=== PATIENT | male | born 2000 | race African-American/Black ===

== ENCOUNTER 2024-12-06 10:15 | Outpatient (REF) | payer MEDICAID, SELFPAY ==
[2024-12-06 11:29] LABS: Hematocrit 44.4 % (42.0-52.0); Hemoglobin 15.1 g/dl (14.0-18.0); Mean Corpuscular Hemoglobin 26.7 pg (27.0-33.0); Mean Corpuscular Volume 78.6 fL (80.0-98.0); Platelet Count 174 X10*3/uL (160-400); Red Blood Count 5.65 X10*6/uL (4.60-5.80); Red Cell Distribution Width 13.3 % (11.0-16.0); White Blood Count 7.3 X10*3/uL (4.8-10.8)
[2024-12-06 11:36] LABS: Estimated Average Glucose 103 mg/dL; Hemoglobin A1C 129.6406 umol/L; Hemoglobin A1c % 5.2 % (<6.0)
--- OUTSIDE RECORDS SUMMARY | 2024-12-06 11:36 | XMS_ITS | Clinical Summary ---
Author Organization [employer] [facility] Address [address] [facility] 7t [place] [address] Care Team Providers Care Card Cutter Helper Name Role Phone Corazon Lee DO Primary Care Provider Allergies Active Allergy Reactions Criticality Noted Date Comments Shellfish Allergy 07/22/2023 Medications No known medications Active Problems No known active problems Encounters Date Type Department Care Team Description 12/06/2024 9:00 AM EDT Office Visit [facility] [address] [place] [phone] Corazon Lee DO Routine history and physical examination of adult (Primary Dx); BMI 21.0-21.9, adult; Heart murmur; Decreased visual acuity 12/06/[address] [address] Corazon Lee DO telephone call 12/06/2024 Travel 12/05/[address] [address] Corazon Lee DO Chart Prep 11/28/2024 Patient Outreach [address] [address] Corazon Lee DO Pre-visit Planning (SDOH screening negative and tobacco screening negative) 09/08/2024 Population Health Risk Score [facility] (C[facility]) Department [address] [phone] Provider, Population Health Generic from Last 3 Months Immunizations Immunization Administration Dates Next Due INFLUENZA INJECTABLE QUADRIV ALANT CCIIV4 MDCK Multi-dose vial 06/08/2023 Influenza, Injectable, MDCK, preservative free 1 Family History Medical History Relation Name Comments No Known Problems Father Breast cancer Father's Sister No Known Problems Mother Cancer Paternal Cousin Relation Name Status Comments Father Father's Sister Mother Paternal Cousin Social History Tobacco Use Types Packs/Day Years Used Date Smoking Tobacco: Never Smokeless Tobacco: Never Tobacco Cessation:Counseling Given: Not Answered Depression Answer Date Recorded Patient Health Questionnaire-9 Score 0 12/06/2024 Patient Health Questionnaire-9 Score 0 12/06/2024 Last PHQ-9: Questionnaire Data Not on file 0 12/06/2024 Housing Stability Answer Date Recorded What is your housing situation today? I have karine feng 11/28/[address] you li ve. Do you have problems with any of the following? None of the above 11/28/2024 Food Insecurity Answer Date Recorded Within the past 12 months, y ou worried that your food would run out before you got money to buy more: Never True 11/28/2024 Within the past 12 months,th e food you bought just didn't last and you didn't have enough money to get more: Never True 08/2024 Transportation Answer Date Recorded In the past 12 months, has l ack of transportation kept you from medical appts, meetings, work or from getting things needed for daily living? No 11/28/2024 Utilities Answer Date Recorded In the past 12 months, has t he electric, gas, oil or water company threatened to shut off services in your home? No 11/28/2024 Depression Answer Date Recorded Patient Health Questionnaire-2 Score 0 12/06/2024 Internet Access Answer Date Recorded Internet Access Q1 Yes 11/28/2024 Internet Access Q2 Not on file 11/28/2024 Sex and Gender Information Value Date Recorded Sex Assigned at Male 06/08/2023 9:27 AM EST Legal Sex Male 9:24 AM EST Gender Identity Male 06/08/2023 9:27 AM EST Sexual Orientation Straight 08/09/2023 10 :02 AM EST Last Filed Vital Signs Vital Sign Reading Time Taken Comments Blood Pressure 128/80 12/06/2024 8:49 AM EDT Pulse 94 12/06/2024 8:49 AM EDT Temperature 36.8 ??C (98.2 ??F) 12/06/2024 8:49 AM ED T Respiratory Rate 18 12/06/2024 8:49 AM EDT Oxygen Saturation - - Inhaled Oxygen Concentration - - Weight 69.9 kg (154 lb) 12/06/2024 8:49 AM EDT Height 180.3 cm (5' 11 ) 12/06/2024 8:49 AM EDT Body Mass Index 21.48 12/06/2024 8:49 AM EDT Plan of Treatment Health Maintenance Due Date Last Done Comments HIV Screening 2000 Family Planning (PISQ) 01/13/2015 HPV Vaccines (1 - Male 3-dos e series) 01/13/2015 Hepatitis C Screening 01/13/2018 DTaP/Tdap/Td Vaccines (1 - Tdap) 01/13/2019 Hepatitis B Vaccines (1 of 3 - 19+ 3-dose series) 01/13/2019 COVID-19 Vaccine ( - 2023-2 5 season) 2024 Dental Oral Exam 07/03/2024 12/31/2023, 07/01/2023 Dental Prophylaxis 07/03/2024 12/31/2023, 07/01/2023 Dental X-Ray: Bitewings 04/14/2025 04/13/20 24, 07/01/2023 SDOH Screening 11/28/2025 11/28/2024 Alcohol/Substance Use Screening 12/06/2025 12/06/2024 Depression Screening 12/06/2025 12/06/2024, 12/06/2024 Disability Screening 12/06/2025 12/06/2024 Tobacco Screening 12/06/2025 12/06/2024 Dental X-Ray: Full Mouth 07/02/2026 024, 06/09/2023 Zoster Vaccines (1 of 2) 01/13/2050 RSV Patients and Patients Aged 60 years or older (1 - 1-dose 75+ series) 01/13/2075 Influenza Vaccine Completed 04/12/2024, 06/08/2023 HIB Vaccines Aged Out No longer eligi ble based on patient's age to complete this topic Hepatitis A Vaccines Aged Out No long er eligible based on patient's age to complete this topic IPV Vaccines Aged Out No longer eligi ble based on patient's age to complete this topic Meningococcal B Vaccine Aged Out No l onger eligible based on patient's age to complete this topic Meningococcal Vaccine Aged Out No alondra jazz eligible based on patient's age to complete this topic Pneumococcal Vaccine: Pediatrics (0 to 5 Years) and At-Risk Patients (6 to 49) Years) Aged Out No longer eligible b ased on patient's age to complete this topic RSV under 20 months Aged Out No longe r eligible based on patient's age to complete this topic Rotavirus Vaccines Aged Out No longer eligible based on patient's age to complete this topic Procedures Procedure Name Priority Date/Time Associated Diagnosis Comments CBC Routine 12/06/2024 10:20 AM EDT Routine history and physical examination of adult BMI 21.0-21.9, adult BITEWING - SINGLE RADIOGRAPHIC IMAGE Routine 04/13/2024 10:00 AM EDT Full PROPHYLAXIS - ADULT Routine 12/31/2023 8:00 AM EDT PERIODIC ORAL EVALUATION - ESTABLISHED PATIENT Routine 12/31/2023 8:00 AM EDT INTRAORAL - COMPLETE SERIES OF RADIOGRAPHIC IMAGES Routine 07/01/2023 8:00 AM EST from Last 3 Months or Most Recently Relevant to Health Maintenance Results * (ABNORMAL) CBC (12/06/2024 10:20 AM EDT) White Blood Count 7.3 4.8 - 10.8 X10*3/uL [facility] Red Blood Count 5.65 4.60 - 5.80 X10*6/uL [facility] Hemoglobin 15.1 14.0 - 18.0 g/dl [facility] Hematocrit 44.4 42.0 - 52.0 % [facility] Mean Corpuscular Volume 78.6(L) 80.0 - 98.0 fL [facility] Mean Corpuscular Hemoglobin 26.7(L) 27.0 - 33.0 pg [facility] Mean Corpuscular HGB Conc 34.0 31.0 - 36.0 g/dl [facility] Red Cell Distribution Width 13.3 11.0 - 16.0 % [facility] Platelet Count 174 160 - 400 X10*3/uL [facility] Mean Platelet Volume 11.0 9.4 - 12.4 fL [facility] NRBC Pct Auto 0.0 0.0 - 0.2 /100WBC [facility] NRBC Abs Auto 0.000 0.0 - 0.012 X10*3/uL [facility] Blood Venous blood specimen / Unknown 12/06/2024 10:20 AM EDT 12/06/2024 11:17 AM EDT us Corazon Lee DO LAB BLOOD ORDERABLES Final R esult [facility] [address] [place] [phone] [phone] from Last [address] [place] [address] [address] [facility]AL-[facility] MEDICAID STAND ADULT Care Teams Card Cutter Helper Relationship Specialty Start Date End Date Corazon Lee DO [address] [place] [phone] PCP - General Family Medicine 12/06/24
[2024-12-06 12:09] LABS: Alanine Aminotransferase 32 U/L (0-40); Albumin Level 4.9 g/dL (3.5-5.0); Alkaline Phosphatase 60 U/L (39-117); Anion Gap 10 (12-20); Aspartate Amino Transferase 32 U/L (5-37); Bilirubin Direct 0.1 mg/dL (0.0-0.5); Bilirubin Total 0.3 mg/dL (0.0-1.0); Blood Urea Nitrogen 12 mg/dL (9-16); Calcium 9.7 mg/dL (8.4-10.2); Carbon Dioxide 29 mmol/L (22-29); Chloride 104 mmol/L (96-108); Cholesterol 157 mg/dL (<200); Estimated Glomerular Filt Rate > 60; Glucose Random 96 mg/dL (60-115); HDL Cholesterol 56 mg/dL (>40); LDL Cholesterol Calculated 67 mg/dL (<100); Potassium 4.2 mmol/L (3.3-5.1); Sodium 139 mmol/L (135-145); Total Protein 7.5 g/dL (6.5-8.0); Triglycerides 172 mg/dL (<150)
[2024-12-06 12:17] LABS: Free T4 (Free Thyroxine) 0.84 ng/dL (0.71-1.85); Thyroid Stimulating Hormone 1.33 uIU/mL (0.32-4.0); Vitamin D 25-OH Total 25.9 ng/mL (>30)
[2024-12-06 12:32] LABS: HBc Num1 0.07 S/CO (0.00-0.79); HBsAGNum1 0.46 S/CO (0.00-0.99); HIV AB/AG Nonreactive (Nonreactive); HIV Num 1 0.06 S/CO (0.00-0.99); Hepatitis B Core Antibody Nonreactive (Nonreactive); Hepatitis B Surface Antigen Negative (Negative); ~HepC Num1 0.15 S/CO (0.00-0.79); ~Hepatitis C Antibody Nonreactive (Nonreactive)
[2024-12-06 13:43] LABS: CT PCR NOT DETECTED (Not Detect.); NG PCR NOT DETECTED (Not Detect.)
[2024-12-07 05:28] LABS: Rubella IgG Antibody 1.74 Index; Rubeola IgG (Measles) <13.50 AU/mL
[2024-12-07 05:39] LABS: Varicella IgG Antibody 8.95 S/CO
[2024-12-07 08:20] LABS: HBS Num2 8.16 mIU/mL (0-7.99); ~Hepatitis B Surface Antibody GRAYZONE (Nonreactive)
[2024-12-07 11:53] LABS: RPR Rapid Plasma Reagin NON-REACTIVE (NON-REACTIVE)
[2024-12-08 08:18] LABS: Hepatitis A Antibody IgG REACTIVE (Nonreactive); ~Hepatitis A Antibody IgG 7.72 S/CO (0.00-0.99)
[2024-12-09 02:38] LABS: TS Negative Control Passed; TS Panel A 0; TS Panel B 0; TS Positive Control Passed; TSpotTB Negative (Negative)
== END 2024-12-06 10:16 | disposition home or self-care (01) ==
LOC: HO.HHCL 10:15
PROVIDERS: Visit Provider Family Medicine
DX: Z00.00 Encounter for general adult medical examination without abnormal findings (principal); Z68.21 Body mass index [BMI] 21.0-21.9, adult
CPT/HCPCS: 80048; 80061; 80076; 82306; 83036; 84439; 84443; 85027; 86481; 86592; 86704; 86706; 86708; 86735; 86762; 86765; 86787; 86803; 87340; 87389; 87491; 87591

== ENCOUNTER → 2025-03-26 11:00 | Outpatient (REF) | payer MEDICAID, SELFPAY ==
--- NOTE | 2025-03-26 11:06 | CA_ITS ---
Transthoracic Echocardiogram Patient (Last, First, Middle): Rod Scherer B. Gender: M Date of : 2000 Age: 25 Procedure Date: 03/26/2025 Procedure Type: Transthoracic Echocardiogram Location: OP Height: 180.34 cm Weight: 72.58 kg BSA: 1.92 m2 Heart Rate: 51 bpm BP: 118 / 68 mmHg Cut Out Worker: SB Referring MD: Corazon Lee DO Symptoms: R01.1 MURMUR Study Quality: Adequate ECG Rhythm: Bradycardia Conclusions: - The left ventricular systolic function is normal. The calculated ejection fraction is 59% by biplane method. - No obvious valvular pathology seen on this study. Findings Left Ventricle Normal left ventricular cavity size. There is normal left ventricular wall thickness. The left ventricular systolic function is normal. The calculated ejection fraction is 59% by biplane method. There is no evidence of regional wall motion abnormalities. Diastolic function is normal for age. Right Ventricle The right ventricle was not well visualized. There is normal right ventricular systolic function. Atria Both atria are normal in size. Aortic Valve There is a normal trileaflet aortic valve. There is no aortic valve stenosis. There is no aortic valve regurgitation. Mitral Valve The mitral valve appears normal. There is trace mitral valve regurgitation. There is no mitral valve stenosis. Pulmonic Valve There is trace pulmonic valve regurgitation. Tricuspid Valve Normal tricuspid valve structure. There is mild tricuspid valve regurgitation. There is no evidence of pulmonary hypertension. Great Vessels The asc aorta is normal in size. Venous The inferior vena cava is normal in size and collapses greater than 50% with inspiration. Pericardium/Pleural There is no evidence of pericardial effusion. Prior Study Comparison No prior study available for comparison. Recommendations, Care & Conclusions No obvious valvular pathology seen on this study. Measurements 2D Linear Measurements IVSd: 1.02 0.6-0.9/0.6-1.0 cm LVIDd: 5.19 3.9-5.3/4.2-5.9 cm LVIDd Index: 2.70 2.4-3.2/2.2-3.1 cm/m2 LVIDs: 3.19 2.0-3.6 cm LVPWd: 0.71 0.7-1.1 cm LA Diam: 3.40 2.7-3.8/3.0-4.0 cm LAIDs Index: 1.77 1.5-2.3 cm/m2 LV Mass: 199.84 67-162/88-224 g LV Mass Index: 104.08 43-95/49-115 g/m2 LVOT Diam: 2.20 3.0+(-)1.3 cm 2D Systolic Function EF 4C: 55.50 >55% EF 2C: 62.70 >55% EF BiP: 59.40 >55% Mitral Valve MV Pk E: 0.67 MV PK A: 0.22 MV Decel Time: 227.00 E/A: 3.00 E'Lateral: 16.30 E'Medial: 12.80 E/E' Med: 5.30 E/E' Lat: 4.10 PHT: 66.00 MVA PHT: 3.33 Decel [place]: 2.96 Aortic Valve AoV Pk Maciej: 0.92 AoV Pk Grad: 3.00 VANESA: 2.86 LVOT LVOT Pk Maciej: 0.69 LVOT Mn Maciej: 0.41 LVOT VTI: 0.12 LVOT Pk Grad: 2.00 LVOT Mn Grad: 1.00 LVOT Diam: 2.20 LVOT Area: 3.80 Diastolic Function MV Pk E: 0.67 MV Pk A: 0.22 E/A: 3.00 E'Medial: 12.80 E/E' Med: 5.30 E' Laterial: 16.30 E/E' Lat: 4.10 Right Ventricle TAPSE (mm): 21.50 TVS' Maciej: 12.60 Tricuspid Valve TR Pk Maciej: 1.82 TR Pk Grad: 13.00 RA Press: 8.00 RVSP: 21.00 Great Vessels Aorta Sinus of Valsalva: 2.90 2.0-3.5 cm Ao Asc: 2.30 2.1-3.4 cm Pulmonary Veins Pulm Vein S/D 1.20 Pulmonary Valve PV Pk Maciej: 0.90 Peak PV Grad: 3.00 DE Pk Maciej: 1.66 Updated in Other Vendor System with Status of Final Allan Das MD electronically signed on 03/27/2025 2:40:16 PM with status of Final
--- OUTSIDE RECORDS SUMMARY | 2025-03-26 12:29 | XMS_ITS | Clinical Summary ---
Author Organization [employer] Address 75 [facility] 7t [place] [address] Care Team Providers Care Animal Behaviorist Name Role Phone Corazon Lee DO Primary Care Provider [phone] Allergies Active Allergy Reactions Criticality Noted Date Comments Shellfish Allergy 07/22/2023 Medications Vitamin D, Cholecalciferol , 10 MCG (400 UNIT) chewable tablet Chew 800 Units in the morning. 60 tablet 5 5 Active clotrimazole (Lotrimin) 1 % cream Apply topically 2 times daily. 30 g 3 5 Active EPINEPHrine (Epipen) 0.3 MG/0.3ML injection syringeIndicati ons:Shellfish allergy Inject 0.3 mL (0.3 mg) as directed 1 (one) time for 1 dose. use as directed for allergic reaction and then call 911 1 each 5 Active Active Problems Problem Noted Date Diagnosed Date BMI 21.0-21.9, adult 02/19/2025 Shellfish allergy 02/19/2025 Vitamin D deficiency 12/20/2024 Resolved Problems Problem Noted Date Diagnosed Date Resolved Date High blood triglycerides 12/20/2024 Vaccine for measles 12/20/2024 02/20/20 Encounters Date Type Department Care Team Description 02/20/[address] [facility] [address] [place] [address] Corazon Lee DO Shellfish allergy from Last 3 Months Immunizations Immunization Administration Dates Next Due INFLUENZA INJECTABLE QUADRIV ALANT CCIIV4 MDCK Multi-dose vial 06/08/2023 Influenza, Injectable, MDCK, preservative free 1 MMR 12/20/2024 Family History Medical History Relation Name Comments [...] your housing situation today? I have karine ping 11/28/[address] you li [...] Sign Reading Time Taken Comments Blood Pressure 118/69 12/20/2024 9:45 AM EDT Pulse 69 12/20/2024 9:45 AM EDT Temperature 36.8 C (98.2 F) 12/20/2024 9:45 AM EDT Respiratory Rate 17 12/20/2024 9:45 AM EDT Oxygen Saturation 97% 12/20/2024 9:45 AM EDT Inhaled Oxygen Concentration - - Weight 69 kg (152 lb 3.2 oz) 12/20/2024 9:45 AM EDT Height 180.3 cm (5' 11 ) 12/06/2024 8:49 AM EDT Body Mass Index 21.23 12/06/2024 8:49 AM EDT Plan of Treatment Upcoming Encounters Date Type Department Care Team (Late st Contact Info) Description 04/12/2025 11:15 AM EDT Office Visit [facility] [address] [place], [place] [phone] Angie Martines, OD [address] [place] [address] Health Maintenance Due Date Last Done Comments Family Planning (PISQ) 01/13/2015 HPV Vaccines (1 - Male 3-dos e series) 01/13/2015 DTaP/Tdap/Td Vaccines (1 - Tdap) 01/13/2019 Hepatitis B Vaccines (1 of 3 - 19+ 3-dose series) 01/13/2019 Dental Oral Exam 07/03/2024 12/31/2023, 07/01/2023 Dental Prophylaxis 07/03/2024 12/31/2023, 07/01/2023 COVID-19 Vaccine (1 - 2023-2 5 season) 2025 Influenza Vaccine (#1) 2025 4, 06/08/2023 Dental X-Ray: Bitewings 04/14/2025 04/13/20 24, 07/01/2023 SDOH Screening 11/28/2025 11/28/2024 Alcohol/Substance Use Screening 12/06/2025 12/06/2024 Depression Screening 12/06/2025 12/06/2024, 12/06/2024 Disability Screening 12/06/2025 12/06/2024 Tobacco Screening 12/20/2025 12/20/2024 Dental X-Ray: Full Mouth 07/02/2026 024, 06/09/2023 Zoster Vaccines (1 of 2) 01/13/2050 RSV Patients and Patients Aged 60 years or older (1 - 1-dose 75+ series) 01/13/2075 HIV Screening Completed 12/06/2024 Hepatitis C Screening Completed 12/06/2024 HIB Vaccines Aged Out No longer eligi [...] Years) and At-Risk Patients (6 to 49) Years Aged Out No longer eligible b ased on patient's age to complete this topic RSV under 20 months Aged Out No longe r eligible based on patient's age to complete this topic Rotavirus Vaccines Aged Out No longer eligible based on patient's age to complete this topic Procedures Procedure Name Priority Date/Time Associated Diagnosis Comments HEPATITIS C AB W/REFL TO HCV RNA, QN, PCR Routine 12/06/2024 10:20 AM EDT Routine history and physical examination of adult BMI 21.0-21.9, adult HIV 1/2 ANTIGEN/ANTIBODY, FOURTH GENERATION W/RFL Routine 12/06/2024 10:20 AM EDT Routine history [...] Recently Relevant to Health Maintenance Results * Hepatitis C Antibody with Reflex to HCV, RNA, Quantitative, Real-Time PCR (12/06/2024 10:20 AM EDT) Hepatitis C Antibody Nonreactive Nonreactive [facility] Comment:Antibodies to HCV no t detected; does not exclude early acuteHCV infection. Blood Venous blood specimen / Unknown 12/06/2024 10:20 AM EDT 12/06/2024 11:17 AM EDT us Corazon Lee DO LAB BLOOD ORDERABLES Final R esult Performing Organization Address City/[facility]/ZIP Co de Phone Number [facility] [address] [place] [phone] * HIV-1/2 Antigen and Antibodies, Fourth Generation, with Reflexes (12/06/2024 10:20 AM EDT) [facility] HIV AB/AG Nonreactive Nonreactive [facility] Comment:HIV-1 p24 Ag and/or HIV-1/HIV-2 Ab not detected.A test result that is nonreactive does not exclude thepossibility of exposure to or infection with HIV-1 and/orHIV-2. Nonreactive results in this assay for individualswith prior exposure to HIV-1 and/or HIV-2 may be due toantigen and antibody levels that are below the limit ofdetection of this assay.[employer] HIV Ag/Ab Combo assay result andsupplemental assay results should be interpreted inconjunction with the patient's clinical presentation,history and other laboratory results. If the results areinconsistent with clinical evidence, additional testing issuggested to confirm the result. Blood Venous blood specimen / Unknown 12/06/2024 10:20 AM EDT 12/06/2024 11:17 AM EDT us Corazon Lee DO LAB BLOOD ORDERABLES Final R esult Performing Organization Address City/[facility]/ZIP Co de Phone Number [facility] [address] [place] [phone] from Last 3 Months or Most Recently Relevant to Health Maintenance Insurance [facility] MEDICAID STAND ADULT Care Teams Animal Behaviorist Relationship Specialty Start Date End Date Corazon Lee DO [address] [place] [phone] PCP - General Family Medicine 12/06/24
--- OUTSIDE RECORDS SUMMARY | 2025-03-26 12:29 | XMS_ITS | Encounter Summary ---
Author Organization [employer] Address [address] [place] [address] [address] [place] [address] Care Team Providers Care Charge Auditor Name Role Phone Corazon Lee DO Primary Care Provider + [phone] Encounter Details Date Type Department Care Team (Late st Contact Info) Description 07/14/2023 Abstract [facility] ADULT [facility] [address] [place] [address] Guanaco Hermosillo, GLEN [address] [place] [address] Social History Tobacco Use Types Packs/Day Years Used Date Smoking Tobacco: Never Smokeless Tobacco: Never Sex and Gender Information Value Date Recorded Sex Assigned at Male 06/08/2023 9:27 AM EST Legal Sex Male 9:24 AM EST Gender Identity Male 06/08/2023 9:27 AM EST Sexual Orientation Straight 08/09/2023 10 :02 AM EST documented as of this encounter Plan of Treatment Upcoming Encounters Date Type Department Care Team (Late st Contact Info) Description 04/12/2025 11:15 AM EDT Office Visit [facility] [address] [place] [address] TarkaAngie, OD [address] [place] [address] documented as of this encounter Visit Diagnoses Not on filedocumented in this encounter Care Teams Charge Auditor Relationship Specialty Start Date End Date Corazon Lee DO [address] [place] [address] PCP - General Family Medicine 12/06/24 documented as of this encounter
--- OUTSIDE RECORDS SUMMARY | 2025-03-26 12:29 | XMS_ITS | Encounter Summary ---
Author Organization [employer] Address [address] [place] [address] [address] [place] [address] Care Team Providers Care Change Agent Name Role Phone Corazon Lee DO Primary Care Provider + [phone] Reason for Visit * Reason Onset Date Comments rs appt 05/15/2024 Encounter Details Date Type Department Care Team ([facility] st Contact Info) Description 05/15/2024 Telephone [facility] ADULT DENTAL [address] [place] [address] Guanaco Hermosillo, GLEN [address] [place] [address] rs appt Social History Tobacco Use Types Packs/Day Years Used Date Smoking Tobacco: Never Smokeless Tobacco: Never Sex and Gender Information Value Date Recorded Sex Assigned at Male 06/08/2023 9:27 AM EST Legal Sex Male 9:24 AM EST Gender Identity Male 06/08/2023 9:27 AM EST Sexual Orientation Straight 08/09/2023 10 :02 AM EST documented as of this encounter Miscellaneous Notes * Telephone Encounter - Bekah Cook - 05/15/2024 11:34 AM EST Patient called and cnacelled appt for 05/[address] Hermosillo due to a pending trip that came up. It was explaiend to patient that he will be back on the waiting list as appts with Oral surgery are 1 time per month and waitlisted. He did want to speak to someone in the office to see if there was anything office could do. I did transfer the call. Documenting for waterfront director follow up in the event that patient is unable to connect documented in this encounter Plan of Treatment Upcoming Encounters Date Type Department Care Team (Late st Contact Info) Description 04/12/2025 11:15 AM EDT Office Visit [facility] [address] [place], [place] [phone] Angie Martines, OD [address] [place], [place] [phone] documented as of this encounter Visit Diagnoses Not on filedocumented in this encounter Care Teams Change Agent Relationship Specialty Start Date End Date Corazon Lee DO [address] [place], [place] [phone] PCP - General Family Medicine 12/06/24 documented as of this encounter
== END ==
LOC: HO.CARD 11:00
PROVIDERS: Visit Provider Family Medicine
DX: R01.1 Cardiac murmur, unspecified (principal)
CPT/HCPCS: 93306

== ENCOUNTER → 2025-03-26 11:06 | Outpatient (BNV) | payer MEDICAID, SELFPAY | PROVIDERS: Visit Provider Internal Medicine | DX: R01.1 Cardiac murmur, unspecified (principal); I36.1 Nonrheumatic tricuspid (valve) insufficiency | CPT/HCPCS: 93306 ==